=== PATIENT | female | born 1980 | race African-American/Black ===

== ENCOUNTER 2024-07-27 14:54 | Emergency (ER) | payer OTHER, SELFPAY ==
[2024-07-27 15:01] VITALS: BP 119/69; PULSE 97; RESP 20; TEMP 36.3; O2SAT 98; BMI 32.1
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
[2024-07-27 15:36] LABS: Appearance Urine Slightly Cloudy (Clear); Bilirubin Urine Negative (Negative); Blood Urine 2+ (Negative); Color Urine Yellow (Yellow); Glucose Urine Negative (Negative); Ketones Urine Negative (Negative); Leukocyte Esterase Urine 3+ (Negative); Nitrite Urine Negative (Negative); Protein Urine 2+ (Negative); Specific Gravity Urine 1.025 (1.000-1.030); Urobilinogen Urine 0.2 (0.2-1.0)
[2024-07-27 15:50] LABS: Bacteria Urine Many; RBC Urine >100 (0-2); WBC Urine >100 (0-5)
[2024-07-27] MEDS: ONDANSETRON ODT 4 MG TAB PO (16:19)
[2024-07-27] MEDS: KETOROLAC 30 MG/ML inj IM (16:52)
[2024-07-27 17:30] VITALS: BP 143/65; PULSE 79; RESP 18; O2SAT 99
[2024-07-27] MEDS: CYCLOBENZAPRINE HCL 10 MG TABLET PO (19:12)
[2024-07-27] MEDS: HYOSCYAMINE SULFATE 0.125 MG TAB 0.25 MG SUBLINGUAL (19:13)
[2024-07-27 19:15] VITALS: BP 136/71; PULSE 94; RESP 16; O2SAT 97
== END 2024-07-27 20:50 | disposition home or self-care (01) ==
PROVIDERS: Emergency Provider Family Medicine
DX: N39.0 Urinary tract infection, site not specified (principal); Y09 Assault by unspecified means
CPT/HCPCS: 81001; 87086; 87186; 93005; 96372; 99284; A9270; J1885